=== PATIENT | female | born 1950 | race Two or more races ===

== ENCOUNTER 2023-07-21 23:44 | Emergency (ER) | payer OTHER, MEDICAID ==
[~2023-07-21] VITALS: Ht 165.1 cm; Wt 59.0 kg
[2023-07-22] VITALS: PULSE 86; RESP 16; TEMP 98.3; O2SAT 96
[2023-07-22] MEDS: KETOROLAC TROMETH 30 MG/ML 1ML VIAL IV ONE (02:22)
[2023-07-22 03:23] VITALS: BP 99/66; PULSE 92; RESP 16; O2SAT 94
== END 2023-07-22 03:29 | disposition home or self-care (01) ==
LOC: EDBD 23:44 → ER 23:44
DX: M54.32 Sciatica, left side (principal); I25.10 Atherosclerotic heart disease of native coronary artery without angina pectoris; I50.9 Heart failure, unspecified; J44.9 Chronic obstructive pulmonary disease, unspecified; Z98.890 Other specified postprocedural states; Z88.8 Allergy status to other drugs, medicaments and biological substances
CPT/HCPCS: 72100; 73502; 93005; 96374; 99284; J1885

== ENCOUNTER 2024-06-10 14:36 | Inpatient (IN) | payer OTHER, MEDICAID ==
[~2024-06-10] VITALS: Ht 157.5 cm; Wt 59.8 kg
[~2024-06-10 14:36] MED LIST: AMLO1TAB22 PO; APIX5TAB PO; ATOR10TA52 PO; DOCU-94 PO; LEVO175T4 PO; OMEP20TA PO; SACU1TAB PO
[2024-06-10] MEDS: IPRATROPIUM BROM 0.5 MG/2.5ML INH SOL NEB ONE (15:13)
[2024-06-10] MEDS: ALBUTEROL SULF 2.5 MG/0.5ML(0.5%) NEB SOLN NEB ONE (15:13)
--- NOTE | 2024-06-10 15:22 | ED.PDOC ---
SOB-HPI HPI Comments 74y F who presents to the ED via EMS for chief complaint of shortness of breath. Pt states she has been having shortness of breath for the past 1 hours and called EMS. EMS upon arrival, checked 02 sat in the 80's with respiratory distress and EMS gave pt breathing treatment and pt 02 sat philippe to 96% and pt was brought to the ED for further evaluation. Pt in the ED, in no noted distress with 02 sat of 97% on room air with all other vitals in normal range. Pt states she has extensive medical history with noted 9x prior cardiac stents placed. Pt otherwise denies any other symptoms at this time.m Chief Complaint: Shortness of Breath Time Seen by MD: 15:20 Reviewed notes: Elevator Dispatcher Notes Information Source: Patient, Emergency Med Personnel Mode of Arrival: EMS Past Medical History PAST MEDICAL HISTORY: CAD, CHF, COPD, Thyroid Surgical History: PTCA NATURALIST History: Denies all NATURALIST Hx Family History Family History: Reviewed,noncontributory to illness Social History Smoker: Non-Smoker Alcohol: Denies ETOH Use Drugs: Denies Drug Use Lives In: Home Constitutional: denies: chills, diaphoresis, fatigue, fever, malaise, sweats, weakness, others EENTM: denies: blurred vision, double vision, ear bleeding, ear discharge, ear drainage, ear pain, ear ringing, eye pain, eye redness, hearing loss, mouth pain, mouth swelling, nasal discharge, nose bleeding, nose congestion, nose pain, photophobia, tearing, throat pain, throat swelling, voice changes, others Respiratory: reports: shortness of breath; denies: cough, hemoptysis, orthopnea, SOB at rest, SOB with excertion, stridor, wheezing, others Cardiovascular: denies: chest pain, dizzy spells, diaphoresis, Dyspnea on exertion, edema, irregular heart beat, left arm pain, lightheadedness, palpitations, PND, syncope, others Gastrointestinal: denies: abdomen distended, abdominal pain, blood streaked bowels, constipated, diarrhea, dysphagia, difficulty swallowing, hematemesis, melena, nausea, poor appetite, poor fluid intake, rectal bleeding, rectal pain, vomiting, others Genitourinary: denies: abnormal vagina bleeding, burning, dyspareunia, dysuria, flank pain, frequency, hematuria, incontinence, pain, , vagina discharge, urgency, others Neurological: denies: dizziness, fainting, headache, left sided numbness, left sided weakness, numbness, paresthesia, pre-existing deficit, right sided numbness, right sided weakness, seizure, speech problems, tingling, tremors, weakness, others Musculoskeletal: denies: back pain, gout, joint pain, joint swelling, muscle pain, muscle stiffness, neck pain, others Integumetry: denies: bruises, change in color, change in hair/nails, dryness, laceration, lesions, lumps, rash, wounds, others Allergic/Immunocompromised: denies: Difficulty Healing, Frequent Infections, Hives, Itching, others Hematologic/Lymphatic: denies: anemia, blood clots, easy bleeding, easy bruising, swollen glands, others Endocrine: denies: excessive hunger, excessive sweating, excessive thirst, excessive urination, flushing, intolerance to cold, intolerance to heat, unexplained weight gain, unexplained weight loss, others Psychiatric: denies: anxiety, bipolar disorder, depression, hopeless, panic disorder, schizophrenia, sleepless, suicidal, others All Other Systems: Reviewed and Negative Physical Exam General Appearance: Moderate Distress HEENT: Normal ENT Inspection, Pharynx Normal, TMs Normal Neck: Full Range of Motion, Non-Tender, Normal, Normal Inspection Respiratory: Respiratory Distress, Other (Coarse breath sounds ) Cardiovascular: No Edema, No JVD, No Murmur, No Gallop, Normal Peripheral Pulses, Regular Rate/Rhythm Breast Exam: Deferred Gastrointestinal: No Organomegaly, Non Tender, No Pulsatile Mass, Normal Bowel Sounds, Soft Genitalia: Deferred Pelvic: Deferred Rectal: Deferred Extremities: No calf tenderness, Normal capillary refill, Normal inspection, Normal range of motion, Non-tender, No pedal edema Musculoskeletal : Apperance: Normal Neurologic: Alert, pin cleaner II-XII nml as Tested, No Motor Deficits, Normal Affect, Normal Mood, No Sensory Deficits Cerebellar Function: NOT DONE Reflexes: NOT DONE Skin: Dry, Normal Color, Warm Peripheral Pulses: 3+ Radial (R), 3+ Radial (L) Lymphatic: No Adenopathy Was a procedure done? Was a procedure done?: No Differential Dx Differential Diagnosis: Anxiety, Asthma, Bronchitis, CHF, COPD, Pneumonia, Pulmonary Embolism, Respiratory Distress X-Ray, Labs, Meds, VS Vital Signs Date Time Temp Pulse Resp B/P (MAP) Pulse Ox O2 Delivery O2 Flow Rate FiO2 06/10/24 21:12 107 18 115/81 96 0.0 21 06/10/24 15:50 98.8 101 18 141/93 (109) 96 06/10/24 15:40 98.7 115 18 115/81 (92) 94 98.7 06/10/24 15:34 Room Air* 0 21 06/10/24 15:13 20 97 Room Air* 0 21 06/10/24 14:59 95 Lab Test 06/10/24 20:54 06/10/24 15:24 Range/Units Troponin I High Sensitivity Pending 51 *H </=34 ng/L White Blood Count 5.3 4.4-10.8 10^3/uL Red Blood Count 4.95 4.0-5.20 10^6/uL Hemoglobin 15.0 12.2-16.2 g/dL Hematocrit 44.8 36.0-46.0 % Mean Corpuscular Volume 90.6 80.0-100.0 fL Mean Corpuscular Hemoglobin 30.2 28.0-32.0 pg Mean Corpuscular Hemoglobin Concent 33.4 32.0-36.0 g/dL Red Cell Distribution Width 14.3 11.8-14.3 % Platelet Count 214 140-450 10^3/uL Mean Platelet Volume 8.9 6.9-10.8 fL Neutrophils (%) (Auto) 50.3 37.0-80.0 % Lymphocytes (%) (Auto) 39.6 10.0-50.0 % Monocytes (%) (Auto) 8.1 0.0-12.0 % Eosinophils (%) (Auto) 1.7 0.0-7.0 % Basophils (%) (Auto) 0.3 0.0-2.0 % Neutrophils # (Auto) 2.7 1.6-8.6 10 ^3/uL Lymphocytes # (Auto) 2.1 0.4-5.4 10 ^3/uL Monocytes # (Auto) 0.4 0-1.3 10 ^3/uL Eosinophils # (Auto) 0.1 0-0.8 10 ^3/uL Basophils # (Auto) 0 0-0.2 10 ^3/uL Nucleated Red Blood Cells 0.0 % Sodium Level 139 136-145 mmol/L Potassium Level 4.6 3.5-5.1 mmol/L Chloride Level 109 H 98-107 mmol/L Carbon Dioxide Level 22 20-31 mmol/L Anion Gap 8 5-15 Blood Urea Nitrogen 14 9-23 mg/dL Creatinine 0.78 0.550-1.02 mg/dL Glomerular Filtration Rate Calc 80 >90 mL/min BUN/Creatinine Ratio 17.9 10.0-20.0 Serum Glucose 107 H 74-106 mg/dL Calcium Level 9.4 8.7-10.4 mg/dL Thyroid Stimulating Hormone (TSH) 38.29 H 0.55-4.78 uIU/mL Current Medications Medications (Trade) Dose Ordered Sig/David Route Start Time Stop Time Status Last Admin Methylprednisolone Sodium Succinate (Solu Medrol) 125 mg ONCE ONCE IV 06/10/24 15:00 06/10/24 15:01 DC 06/10/24 15:31 Albuterol (Ventolin Medneb) 5 mg ONCE ONCE NEB 06/10/24 15:00 06/10/24 15:01 DC 06/10/24 15:13 Ipratropium [place] (Atrovent Medneb) 0.5 mg ONCE ONCE NEB 06/10/24 15:00 06/10/24 15:01 DC 06/10/24 15:13 Azithromycin 250 ml @ 125 mls/hr ONCE ONCE IV 06/10/24 20:30 06/10/24 22:29 06/10/24 21:40 Sodium Chloride 1,000 ml @ 60 mls/hr [id number] IV 06/10/24 20:30 06/10/24 21:10 CHEST RADIOGRAPH IMPRESSION: Right lower lung zone partial opacification which may represent pneumonia. 2.8 x 2.9 cm nodular density over the right mid lung zone. Eventration of the right hemidiaphragm versus right basilar opacity. CT chest is recommended for further evaluation. Hyperinflation of the lungs. Correlate for possible mild emphysematous changes. Patient alert. Complaining of shortness a breath. Paramedics stated her saturation was in the low 80s. Vitals stable. Was given steroid. Was given breathing treatment. Reviewed her previous visit. Explained to the patient. Continue cardiac monitoring. Possibly will need placement. Time of 1ST Reevaluation: 15:50 Reevaluation 1ST: Unchanged Patient Education/Counseling: Diagnosis, Treatment Family Education/Counseling: No Family Present Departure 1 Departure Time of Disposition: 16:00 Impression: Primary Impression: COPD exacerbation Additional Impression: Pneumonitis Disposition: ADMITTED INPATIENT Admit to: Med Surg Condition: Guarded Critical Care Note Critical Care Time?: Yes (45 min-critical care time only) Stability Stability form required: No Heart Score Heart Score: Heart Score Response (Comments) Value History Slightly Suspicious 0 EKG Normal 0 Age >65 2 Risk Factors 1 or 2 risk factors 1 Troponin 1-2 x's Normal limit 1 Total 4 I personally scribed for SOFIA MEJIAS MD ([email or web address]) on 06/10/24 at 15:22. Electronically submitted by Jason Tian ([email or web address]). I personally scribed for SOFIA MEJIAS MD ([email or web address] ELENA) on 06/10/24 at 21:26. Electronically submitted by Jason Tian ([email or web address]). SOFIA MEJIAS MD Jun 10, 2024 15:22
--- NOTE | 2024-06-10 15:27 | DVH ---
CHEST RADIOGRAPH Indication: sob Technique: Single frontal view of the chest was obtained Comparison: XY CHEST XRAY 1 VIEW on DOS: 09/08/23 FINDINGS: Lines and Tubes: None Lungs: Hyperinflation of the lungs with mild interstitial prominence. Opacification of the right lowe r lung zone. 2.8 x 2.9 cm nodular density of the right medial mid lung zone. Eventration of the right hemidiaphragm versus right basilar opacity. Pleura: No effusion. No pneumothorax. Cardiomediastinal contours: Mild cardiomegaly with mild atherosclerotic calcification and uncoiling o f the aorta. Bones: No acute osseous abnormality. IMPRESSION: Right lower lung zone partial opacification which may represent pneumonia. 2.8 x 2.9 cm nodular density over the right mid lung zone. Eventration of the right hemidiaphragm ve rsus right basilar opacity. CT chest is recommended for further evaluation. Hyperinflation of the lungs. Correlate for possible mild emphysematous changes.
[2024-06-10] MEDS: methylPREDNISolone SOD SUCC 125 MG/2 ML VL IV ONE (15:31)
[2024-06-10 16:01] LABS: Potassium 4.6 mmol/L (3.5-5.1); Sodium 139 mmol/L (136-145)
[2024-06-10 16:02] LABS: Anion Gap 8 (5-15); Calcium 9.4 mg/dL (8.7-10.4); Carbon Dioxide 22 mmol/L (20-31)
[2024-06-10 16:04] LABS: Basophils # (auto) 0 10 ^3/uL (0-0.2); Basophils % (auto) 0.3 % (0.0-2.0); Eosinophils # (auto) 0.1 10 ^3/uL (0-0.8); Eosinophils % (auto) 1.7 % (0.0-7.0); Hematocrit 44.8 % (36.0-46.0); Lymphocytes # (auto) 2.1 10 ^3/uL (0.4-5.4); Lymphocytes % (auto) 39.6 % (10.0-50.0); Mean Corpuscular Hemoglobin 30.2 pg (28.0-32.0); Mean Corpuscular Hgb Conc. 33.4 g/dL (32.0-36.0); Mean Corpuscular Volume 90.6 fL (80.0-100.0); Monocytes # (auto) 0.4 10 ^3/uL (0-1.3); Monocytes % (auto) 8.1 % (0.0-12.0); Neutrophils # (auto) 2.7 10 ^3/uL (1.6-8.6); Neutrophils % (auto) 50.3 % (37.0-80.0); Platelet Count (auto) 214 10^3/uL (140-450); Red Blood Cells 4.95 10^6/uL (4.0-5.20); Red Cell Distribution Width 14.3 % (11.8-14.3); White Blood Cell 5.3 10^3/uL (4.4-10.8)
[2024-06-10 16:05] LABS: Chloride 109 mmol/L (98-107)
[2024-06-10 16:07] LABS: BUN/Creatinine Ratio 17.9 (10.0-20.0); Blood Urea Nitrogen 14 mg/dL (9-23)
[2024-06-10 16:17] LABS: Glucose 107 mg/dL (74-106)
[2024-06-10] MEDS ORDERED: ONDANSETRON HCL 4 MG/2 ML VIAL IV PRN (20:30)
[2024-06-10] MEDS ORDERED: DOCUSATE SOD 100 MG CAP PO PRN (20:30)
--- NOTE | 2024-06-10 20:50 | ECG ---
[facility] Test Date: 2024-06-10 Test Time: 14:59:22 Pat Name: JANINE BROTHERS Department: er Room: 0212T Gender: F Emergency Medicine Physician: fernanda : 1950 Requested By: SOFIA MEJIAS Order Number: [id number] Reading MD: Joshua Trujillo Measurements Intervals [place] Rate: 95 P: 0 CO: 0 QRS: 59 QRSD: 88 T: 81 QT: 373 QTc: 469 Interpretive Statements Atrial fibrillation LVH with secondary repolarization abnormality Electronically Signed On 06-18-2024 14:43:55 PST by Joshua Trujillo Please click the below link to view image of tracing.
[2024-06-10] MEDS: SODIUM CHLORIDE 0.9% 1,000 ML IV SCH (21:10)
[2024-06-10 21:12] VITALS: BP 115/81; PULSE 107; RESP 18; O2SAT 96
[2024-06-10] MEDS ORDERED: MORPHINE SULFATE INJ 2 MG/ml SYRG IV PRN (21:15)
[2024-06-10] MEDS ORDERED: NITROGLYCERIN 0.4 MG SL TAB SL PRN (21:15)
--- NOTE | 2024-06-10 21:17 | DVHHP2 ---
History of Present Illness Reason for Visit: Pneumonia, unspecified organism History of Present Illness The patient is a 74-year-old female with past medical history of CHF, COPD, HTN, HLD, Coronary artery disease, and thyroid disease who presented to [facility] ED with complaint of shortness of breaths. Patient reports symptoms progressively get worse with hypoxia, O2 saturation in the 80s when EMS arrived, getting worse that prompted this visit. Patient was seen and evaluated in the ED, laboratory data shows WBC 5.3, platelets 214, sodium 139, potassium 4.6, BUN 14, creatinine 0.78, GFR 50, glucose 107, troponin 51. Chest x-ray revealing right lower lung zone partial opacification which may represent pneumonia, 2.8 x 2.9 cm nodules density over the right mid lung zone hyperinflation of the lungs correlate for possible mild emphysematous changes. Patient was given breathing treatment, IV Solu-Medrol 125 mg x1, please see medication orders section in the computer. On my assessment, patient denied chest pain, no headache, no dizziness, currently on oxygen, no nausea, no vomiting, no fever, no chills. Patient was admitted for further evaluation and medical management. Past Medical History CAD, CHF, COPD, Thyroid, HTN, HLD Past Surgical History PTCA Family History Reviewed, noncontributory to the management of this case. Past Social History The patient lives at home, denies smoking, alcohol or illicit drugs abuse. Review of Systems Constitutional: Yes: Weakness; No: Fever, Chills, Sweats, Malaise, Other Eyes: No: Pain, Vision change, Conjunctivae inflammation, Eyelid inflammation, Other, Redness ENT: No: Ear pain, Ear discharge, Nose pain, Nose discharge, Nose congestion, Mouth pain, Mouth swelling, Throat pain, Throat swelling, Other Respiratory: Shortness of breath, SOB with excertion, Other (SOB at rest); No: Cough, Dry, Wheezing, Hemoptysis, Pleuritic Pain, Sputum, Wheezing Cardiovascular: No: Chest Pain, Palpitations, Orthopnea, Paroxysmal Noc. Dyspnea, Edema, Lt Headedness, Other Gastrointestinal: No: Nausea, Vomiting, Abdominal Pain, Diarrhea, Constipation, Melena, Hematochezia, Other Genitourinary: No Dysuria, No Frequency, No Incontinence, No Hematuria, No Retention, No Other Musculoskeletal: No: other, neck pain, shoulder pain, arm pain, back pain, hand pain, leg pain, foot pain Skin: No: Rash, Lesions, Jaundice, Bruising, Other Neurological: No: Weakness, Numbness, Incoordination, Change in speech, Confusion, Seizures, Other Allergies: Coded Allergies: Codeine (Verified Allergy, Unknown, 07/22/23) Levofloxacin (Verified Allergy, Unknown, 09/07/23) Medications Current Medications Medications Dose Ordered Sig/David Route Start Time Stop Time Status Last Admin Dose Admin Methylprednisolone Sodium Succinate 40 mg Q8HR IV 06/10/24 22:00 Famotidine 20 mg Q12HR IV 06/10/24 22:00 Levalbuterol HCl 0.625 mg Q6HR NEB 06/11/24 00:00 Ipratropium [place] 0.5 mg Q4HPRN PRN NEB 06/10/24 20:30 Azithromycin 250 ml @ 125 mls/hr DAILY IV 06/11/24 10:00 Amlodipine Besylate 5 mg DAILY PO 06/11/24 10:00 Atorvastatin Calcium 10 mg HS PO 06/10/24 22:00 Apixaban 5 mg BID PO 06/10/24 22:00 Sodium Chloride 1,000 ml @ 60 mls/hr [id number] IV 06/10/24 20:30 06/10/24 21:10 60 MLS/HR Ondansetron HCl 4 mg Q4HP PRN IV 06/10/24 20:30 Docusate Sodium 100 mg BIDPRN PRN PO 06/10/24 20:30 Acetaminophen 650 mg Q6HP PRN PO 06/10/24 20:30 Levothyroxine Sodium 150 mcg QAM@0600 PO 06/11/24 06:00 Exam Vital Signs Vital Signs Date Time Temp Pulse Resp B/P (MAP) Pulse Ox O2 Delivery O2 Flow Rate FiO2 06/10/24 21:12 107 18 115/81 96 0.0 21 06/10/24 15:50 98.8 06/10/24 15:34 Room Air* General Appearance: Alert, Oriented X3, Cooperative, No acute distress HEENT: Atraumatic, PERRLA, EOMI, Mucous membr. moist/pink Respiratory: Normal air movement, Other (Diminished breath sounds) Cardiovascular: Regular rate, Normal S1, Normal S2, No murmurs Abdominal: Normal bowel sounds, Soft, No tenderness, No hepatospenomegaly, No masses Extremities: No clubbing, No cyanosis, No edema, Normal pulses, No tenderness/swelling Skin: No rashes, No breakdown, No significant lesion Neuro: Normal speech, Normal tone, Sensation intact, Cranial nerves 3-12 NL, Reflexes 2+, Other (Generalized weakness) Psych/Mental Status: Mental status NL, Mood NL Labs/Xrays Labs Test 06/10/24 20:54 06/10/24 15:24 Range/Units White Blood Count 5.3 4.4-10.8 10^3/uL Red Blood Count 4.95 4.0-5.20 10^6/uL Hemoglobin 15.0 12.2-16.2 g/dL Hematocrit 44.8 36.0-46.0 % Mean Corpuscular Volume 90.6 80.0-100.0 fL Mean Corpuscular Hemoglobin 30.2 28.0-32.0 pg Mean Corpuscular Hemoglobin Concent 33.4 32.0-36.0 g/dL Red Cell Distribution Width 14.3 11.8-14.3 % Platelet Count 214 140-450 10^3/uL Mean Platelet Volume 8.9 6.9-10.8 fL Neutrophils (%) (Auto) 50.3 37.0-80.0 % Lymphocytes (%) (Auto) 39.6 10.0-50.0 % Monocytes (%) (Auto) 8.1 0.0-12.0 % Eosinophils (%) (Auto) 1.7 0.0-7.0 % Basophils (%) (Auto) 0.3 0.0-2.0 % Neutrophils # (Auto) 2.7 1.6-8.6 10 ^3/uL Lymphocytes # (Auto) 2.1 0.4-5.4 10 ^3/uL Monocytes # (Auto) 0.4 0-1.3 10 ^3/uL Eosinophils # (Auto) 0.1 0-0.8 10 ^3/uL Basophils # (Auto) 0 0-0.2 10 ^3/uL Nucleated Red Blood Cells 0.0 % Sodium Level 139 136-145 mmol/L Potassium Level 4.6 3.5-5.1 mmol/L Chloride Level 109 H 98-107 mmol/L Carbon Dioxide Level 22 20-31 mmol/L Anion Gap 8 5-15 Blood Urea Nitrogen 14 9-23 mg/dL Creatinine 0.78 0.550-1.02 mg/dL Glomerular Filtration Rate Calc 80 >90 mL/min BUN/Creatinine Ratio 17.9 10.0-20.0 Serum Glucose 107 H 74-106 mg/dL Calcium Level 9.4 8.7-10.4 mg/dL Thyroid Stimulating Hormone (TSH) 38.29 H 0.55-4.78 uIU/mL PATIENT: JANINE BROTHERS ACCT: [id number] UNIT: [id number] : 1950 LOC: ER ROOM / BED: / AGE / SEX: 74 / F ADM STATUS: REG ER SERVICE [id number] ORDERING PHYSICIAN: SOFIA MEJIAS MD PROCEDURE(s): CXRP - CHEST PORTABLE REASON: sob ORDER NUMBER(s): [id number], ACCESSION NUMBER(s): [id number] CHEST RADIOGRAPH Indication: sob Technique: Single frontal view of the chest was obtained Comparison: XY CHEST XRAY 1 VIEW on DOS: 09/08/23 FINDINGS: Lines and Tubes: None Lungs: Hyperinflation of the lungs with mild interstitial prominence. Opacification of the right lower lung zone. 2.8 x 2.9 cm nodular density of the right medial mid lung zone. Eventration of the right hemidiaphragm versus right basilar opacity. Pleura: No effusion. No pneumothorax. Cardiomediastinal contours: Mild cardiomegaly with mild atherosclerotic calcification and uncoiling of the aorta. Bones: No acute osseous abnormality. IMPRESSION: Right lower lung zone partial opacification which may represent pneumonia. 2.8 x 2.9 cm nodular density over the right mid lung zone. Eventration of the right hemidiaphragm versus right basilar opacity. CT chest is recommended for further evaluation. Hyperinflation of the lungs. Correlate for possible mild emphysematous changes. Assessment/Plan Assessment/Plan COPD with acute exacerbation Generalized weakness Pneumonia, unspecified organism Plan 1. Admit to telemetry unit 2. Breathing treatment 3. Pain control management 4. IV antibiotic management 5. Management of fluids and electrolytes 6. Consultation for pulmonology 7. Diagnostic test chest x-ray 8. DVT prophylaxis-on Eliquis 9. Repeat labs CBC, CMP in a.m. 10. Home medication reviewed and reconciled 11. Continue with current medical management 12. Treatment plan discussed with patient and RN. Patient verbalized understanding. Plan discussed with: Patient, Other (RN) My Orders Orders - EZRA COATS DNP Procedure Category Date Status Time Methylprednisolone PHA 06/10/24 In Process Sod Succ (Solu Medrol 22:00 Famotidine Injection PHA 06/10/24 In Process (Pepcid Injection) 22:00 Levalbuterol Hcl PHA 06/11/24 In Process (Xopenex Medneb) 00:00 Ipratropium Medneb PHA 06/10/24 In Process (Atrovent Medneb) 20:30 Azithromycin 500mg/ PHA 06/11/24 In Process 250ml (Zithromax 50 10:00 Azithromycin 500mg/ PHA 06/10/24 In Process 250ml (Zithromax 50 20:30 Amlodipine Tablet PHA 06/11/24 In Process (Norvasc Tablet) 10:00 Atorvastatin (Lipitor) PHA 06/10/24 In Process 22:00 *Consult CONS 06/10/24 Transmitted / 20:28 Troponin-I Hs LAB 06/10/24 In Process 20:28 Troponin-I Hs LAB 06/11/24 Verified 00:30 Troponin-I Hs LAB 06/11/24 Verified 04:00 Apixaban (Eliquis) PHA 06/10/24 In Process 22:00 Allergies [place] 06/10/24 In Process 20:28 Code Status CODE 06/10/24 Transmitted 20:28 Sodium Chloride 0.9% PHA 06/10/24 In Process 20:30 Oxygen Per Hour RT 06/10/24 Transmitted 20:28 Ondansetron Hcl PHA 06/10/24 In Process (Zofran) 20:30 Docusate Sodium PHA 06/10/24 In Process Capsule (Colace 20:30 Complete Blood Count LAB 06/11/24 Verified 04:00 Comprehensive LAB 06/11/24 Verified Metabolic Panel 04:00 Cardiac DIET 06/11/24 Transmitted Diet-2gna,Lofat,Lochol Breakfast Condition: Serious [place] 06/10/24 In Process 20:28 Acetaminophen Tablet PHA 06/10/24 In Process (Tylenol Tablet) 20:30 Bedrest With Bathroom [place] 06/10/24 In Process Privileg 20:28 Sequential [place] 06/10/24 In Process Compression Device Levothyroxine Tablet PHA 06/11/24 In Process (Synthroid Tablet) 06:00 Problem List: (1) COPD with acute exacerbation (2) Generalized weakness (3) Pneumonia, unspecified organism Date of Service: Jun 10, 2024 Billing Provider: EZRA COATS DNP Common Visit Codes: 55889-SIMETPS INP/OBS CARE (HIGH) EZRA COATS DNP Jun 10, 2024 21:17
[2024-06-10] MEDS: AZITHROMYCIN 500MG/ 250ML 250 ML IV ONE (21:40)
[2024-06-10] MEDS: FAMOTIDINE (10MG/ML) 2ML VL IV SCH (22:02)
[2024-06-10] MEDS: methylPREDNISolone SOD SUCC 40 MG/ML VL IV SCH (22:02)
[2024-06-10] MEDS: APIXABAN 5 MG TAB PO SCH (22:02)
[2024-06-10] MEDS: ATORVASTATIN 20 MG TAB PO SCH (22:02)
[2024-06-11] VITALS (18 sets, daily range): BP systolic 114–149; BP diastolic 79–95; PULSE 76–118; RESP 14–19; TEMP 97.5–97.9; O2SAT 92–99
[2024-06-11] MEDS: LEVALBUTEROL HCL 1.25 MG/3 ML NEB NEB SCH (00:09)
[2024-06-11] MEDS: IPRATROPIUM BROM 0.5 MG/2.5ML INH SOL NEB PRN (00:09)
[2024-06-11] MEDS: LEVOTHYROXINE SODIUM 50 MCG TAB PO SCH (05:50)
--- NOTE | 2024-06-11 09:58 | DVH ---
CLINICAL INFORMATION: 74 years old, Female; shortness of breath. TECHNIQUE: Axial CT imaging of the chest was performed without IV contrast. Sagittal and coronal ref ormatted images were made, stored and reviewed. Evaluation is limited without IV contrast. One or mor e of the following dose reduction techniques were used: Automated exposure control. Adjustment of mA and/or kV according to patient size. CTDIvol = 9.84 mGy DLP = 362.82 mGy-cm COMPARISON: Radiograph dated 06/10/2024 FINDINGS: Aorta: Mildly ectatic ascending aorta measuring up to 3.9 cm in diameter. Moderate atherosclerotic c alcification. Cardiac: Moderate to marked cardiomegaly with markedly enlarged left atrium. Dense coronary artery ca lcification and/or stents. Mediastinum/mally: Right lower paratracheal lymph node measures up to 2.6 x 0.9 cm, likely reactive. Lungs: Scattered areas of subsegmental atelectasis. No focal consolidation. There is an ovoid nodular density in the right lower lobe abutting the posterior aspect of the descending thoracic aorta, pete uring up to 1.1 cm. This is most likely a pulmonary nodule abutting the descending thoracic aorta, or less likely a saccular aneurysm emanating from the posterior wall of the descending thoracic aorta, although unable to determine without IV contrast. No other pulmonary nodule visualized. Pulmonary arteries: No gross abnormality. Chest wall: No mass or other abnormality. Upper abdomen: Right adrenal nodule measures up to 1.1 cm demonstrates low-density, likely an adenoma . There is a small area of calcification associated with the nodule. Bones: No fracture or suspicious intraosseous lesions. IMPRESSION: 1. Moderate to marked cardiomegaly with left atrial enlargement. 2. Mildly ectatic ascending thoracic aorta. 3. Nodular density in the left lower lobe abutting the posterior aspect of the descending thoracic ao rta, most likely a pulmonary nodule, although can not completely exclude a small saccular aneurysm em anating from the posterior aspect of the aortic arch. Contrast enhanced CT could be obtained to [facility] characterize. 4. Right adrenal nodule, most likely adenoma. Small focus of calcification associated with the nodul e, may be sequela of small adrenal hemorrhage. 5. Additional findings as detailed above.
[2024-06-11] MEDS: amLODIPine BESYLATE 5 MG TAB PO SCH (10:28)
[2024-06-11] MEDS: AZITHROMYCIN 500MG/ 250ML 250 ML IV SCH (10:28)
[2024-06-11 10:50] LABS: Basophils # (auto) 0 10 ^3/uL (0-0.2); Basophils % (auto) 0.1 % (0.0-2.0); Eosinophils # (auto) 0 10 ^3/uL (0-0.8); Lymphocytes % (auto) 23.3 % (10.0-50.0); Mean Corpuscular Hemoglobin 30.4 pg (28.0-32.0); Mean Corpuscular Hgb Conc. 32.5 g/dL (32.0-36.0); Mean Corpuscular Volume 93.4 fL (80.0-100.0); Monocytes # (auto) 0.1 10 ^3/uL (0-1.3); Monocytes % (auto) 1.8 % (0.0-12.0); Neutrophils # (auto) 3.2 10 ^3/uL (1.6-8.6); Neutrophils % (auto) 74.8 % (37.0-80.0); Nucleated Red Blood Cells % 0.1 %; Platelet Count (auto) 226 10^3/uL (140-450); Red Blood Cells 4.93 10^6/uL (4.0-5.20); Red Cell Distribution Width 14.5 % (11.8-14.3); White Blood Cell 4.2 10^3/uL (4.4-10.8)
[2024-06-11] MEDS: ACETAMINOPHEN 325 MG TAB PO PRN (12:10)
[2024-06-11 12:47] LABS: Urine Bacteria None Seen /hpf (None Seen)
[2024-06-11 13:10] LABS: Urine Blood Negative /uL (Negative); Urine Clarity Clear (Clear); Urine Color Yellow (Yellow); Urine Mucus FEW (None Seen); Urine Protein, UAD 1+ (Negative); Urine Specific Gravity 1.023 (1.001-1.035); Urine Squamous Epithelial Cell FEW /hpf (<5); Urine Urobilinogen Normal (Negative); Urine WBC 2 /hpf (0 - 5)
[2024-06-11 13:33] LABS: Alanine Aminotransferase 10 U/L (7-40); Alkaline Phosphatase 63 U/L (46-116); Anion Gap 14 (5-15); Aspartate Aminotransferase 18 U/L (13-40); BUN/Creatinine Ratio 15.2 (10.0-20.0); Bilirubin, Total 0.9 mg/dL (0.2-1.0); Blood Urea Nitrogen 12 mg/dL (9-23); Potassium 4.8 mmol/L (3.5-5.1); Sodium 139 mmol/L (136-145); Total Protein 6.9 g/dL (5.7-8.2)
[2024-06-11 13:35] LABS: Carbon Dioxide 15 mmol/L (20-31); Chloride 110 mmol/L (98-107); Glucose 232 mg/dL (74-106)
[2024-06-11] MEDS: cefTRIAXone 1GM/50ML D5W 50 ML IV ONE (17:12)
--- NOTE | 2024-06-11 20:24 | DVHINCON2 ---
Date of service: Jun 11, 2024 Referring Physician Sorin Castillo NP Reason for Consultation COPD exacerbation, pneumonia History of Present Illness A 74-year-old woman with past medical history of COPD, CHF, hypertension, hyperlipidemia, coronary artery disease, and thyroid disease who presented to ED on 06/10/24 with complaint of shortness of breath. Patient reported progressively worsening symptoms with hypoxia, O2 saturation in the 80s when EMS arrived. ED workup notable for WBC 5.3, platelets 214, sodium 139, potassium 4.6, BUN 14, creatinine 0.78, GFR 50, glucose 107, troponin 51. Chest x-ray revealing right lower lung zone partial opacification which may represent pneumonia, 2.8 x 2.9 cm nodules density over the right mid lung zone; hyperinflation of the lungs, correlate for possible mild emphysematous changes. Patient was admitted for further care and pulmonary consultation is requested for evaluation and management due to these findings. Review of Systems: 14-point review of systems negative unless otherwise noted above. Past Medical History: COPD, CHF, hypertension, hyperlipidemia, coronary artery disease, and thyroid disease Past Surgical History: PTCA. Medications: Reviewed. Allergies: Codeine Levofloxacin Family History: Mom with hypertension Social History: Nonsmoker. No alcohol or illicit drug use. Family History: Hypertension G8 MOTHER Allergies: Coded Allergies: Codeine (Verified Allergy, Unknown, 07/22/23) Levofloxacin (Verified Allergy, Unknown, 09/07/23) Home Meds Reported Medications Sacubitril-Valsartan (Entresto 24-26 mg) 1 Tab Tab, 1 TAB PO, TAB 09/09/23 Levothyroxine Sodium (Levothyroxine Sodium) 175 Mcg Tab, 150 MCG PO QAM for 30 Days, MCG 09/09/23 Atorvastatin Calcium (ATORVASTATIN CALCIUM) 10 Mg Tab, 10 MG PO DAILY, TAB 09/09/23 Amlodipine Besylate (Amlodipine Besylate) 5 Mg Tab, 5 MG PO DAILY for 30 Days, MG 09/09/23 Omeprazole (Gnp Omeprazole) 20 Mg Tab, 40 MG PO DAILY, TAB 09/09/23 Apixaban Base (ELIQUIS) 5 Mg Tab, 5 MG PO BID, TAB 09/09/23 Docusate Sodium (Colace) 100 Mg Cap, 100 MG PO BID 09/09/23 Current Medications Current Medications Medications (Trade) Dose Ordered Sig/David Route PRN Reason Start Time Stop Time Status Last Admin Methylprednisolone Sodium Succinate (Solu Medrol) 40 mg Q8HR IV 06/10/24 22:00 06/11/24 13:52 Famotidine (Pepcid Injection) 20 mg Q12HR IV 06/10/24 22:00 06/11/24 10:27 Levalbuterol HCl (Xopenex Medneb) 0.625 mg Q6HR NEB 06/11/24 00:00 06/11/24 18:43 Ipratropium [place] (Atrovent Medneb) 0.5 mg Q4HPRN PRN NEB SHORTNESS OF BREATH 06/10/24 20:30 06/11/24 18:43 Azithromycin 250 ml @ 125 mls/hr DAILY IV 06/11/24 10:00 06/11/24 10:28 Amlodipine Besylate (Norvasc Tablet) 5 mg DAILY PO 06/11/24 10:00 06/11/24 10:28 Atorvastatin Calcium (Lipitor) 10 mg HS PO 06/10/24 22:00 06/10/24 22:02 Apixaban (Eliquis) 5 mg BID PO 06/10/24 22:00 06/11/24 10:28 Sodium Chloride 1,000 ml @ 60 mls/hr [id number] IV 06/10/24 20:30 06/11/24 13:53 Ondansetron HCl (Zofran) 4 mg Q4HP PRN IV NAUSEA / VOMITING 06/10/24 20:30 Docusate Sodium (Colace Capsule) 100 mg BIDPRN PRN PO FOR CONSTIPATION 06/10/24 20:30 Acetaminophen (Tylenol Tablet) 650 mg Q6HP PRN PO PAIN SCALE 1-3 OR TEMP>100.4 06/10/24 20:30 06/11/24 12:10 Levothyroxine Sodium (Synthroid Tablet) 150 mcg QAM@0600 PO 06/11/24 06:00 06/11/24 05:50 Nitroglycerin (Ntrostat Sublingual) 0.4 mg Q5MINP PRN SL FOR CHEST PAIN 06/10/24 21:15 Morphine Sulfate 2 mg Q30M PRN IV FOR CHEST PAIN 06/10/24 21:15 Ceftriaxone Sodium 50 ml @ 100 mls/hr DAILY@09 IV 06/12/24 09:00 Vital Signs Vital Signs Date Time Temp Pulse Resp B/P (MAP) Pulse Ox O2 Delivery O2 Flow Rate FiO2 06/11/24 18:51 100 18 92 06/11/24 18:43 Nasal Cannula 2.0 06/11/24 18:43 28 06/11/24 17:00 97.7 121/95 (104) 97.7 Physical Exam Gen.: Patient lying in bed in no apparent distress. On supplemental oxygen. Head: Normocephalic, atraumatic. Eyes: EOMI/PERRLA. Ears: Normal hearing. Normal anatomy. Neck/trachea: Trachea midline, supple. Nose: Normal external anatomy. Mouth: Moist mucous membranes. Chest: Decreased air entry bilaterally. No wheezing or rhonchi. Cardiovascular: Positive S1, positive S2. Regular rate and rhythm. Abdomen: Positive bowel sounds in all 4 quadrants. Soft, non-tender, non- distended. : Deferred. Rectal: Deferred. Skin: Warm, dry. Intact. Extremities: 2+ radial pulses bilaterally. No lower extremity edema. Neuro: Awake, alert, oriented x3. No gross motor or sensory deficits. Cranial nerves II through XII intact. Gait not assessed. Labs/Diagnostic Data Labs Test 06/11/24 12:46 06/11/24 09:35 06/10/24 15:24 Range/Units Urine Color Yellow Yellow Urine Clarity Clear Clear Urine pH 6.0 5.0-9.0 Urine Specific [place] 1.023 1.001-1.035 Urine Protein 1+ H Negative Urine Ketones Negative Negative Urine Blood Negative Negative /uL Urine Nitrite Negative Negative Urine Bilirubin Negative Negative Urine Urobilinogen Normal Negative mg/dL Urine Leukocyte Esterase Negative Negative /uL Urine RBC 1 0 - 4 /hpf Urine WBC 2 0 - 5 /hpf Urine Squamous Epithelial Cells Few <5 /hpf Urine Bacteria None seen None Seen /hpf Urine Mucus Few None Seen Urine Glucose Normal Normal mg/dL White Blood Count 4.2 L 4.4-10.8 10^3/uL Red Blood Count 4.93 4.0-5.20 10^6/uL Hemoglobin 15.0 12.2-16.2 g/dL Hematocrit 46.0 36.0-46.0 % Mean Corpuscular Volume 93.4 80.0-100.0 fL Mean Corpuscular Hemoglobin 30.4 28.0-32.0 pg Mean Corpuscular Hemoglobin Concent 32.5 32.0-36.0 g/dL Red Cell Distribution Width 14.5 H 11.8-14.3 % Platelet Count 226 140-450 10^3/uL Mean Platelet Volume 9.1 6.9-10.8 fL Neutrophils (%) (Auto) 74.8 37.0-80.0 % Lymphocytes (%) (Auto) 23.3 10.0-50.0 % Monocytes (%) (Auto) 1.8 0.0-12.0 % Eosinophils (%) (Auto) 0.0 0.0-7.0 % Basophils (%) (Auto) 0.1 0.0-2.0 % Neutrophils # (Auto) 3.2 1.6-8.6 10 ^3/uL Lymphocytes # (Auto) 1.0 0.4-5.4 10 ^3/uL Monocytes # (Auto) 0.1 0-1.3 10 ^3/uL Eosinophils # (Auto) 0 0-0.8 10 ^3/uL Basophils # (Auto) 0 0-0.2 10 ^3/uL Nucleated Red Blood Cells 0.1 % Sodium Level 139 136-145 mmol/L Potassium Level 4.8 3.5-5.1 mmol/L Chloride Level 110 H 98-107 mmol/L Carbon Dioxide Level 15 L 20-31 mmol/L Anion Gap 14 5-15 Blood Urea Nitrogen 12 9-23 mg/dL Creatinine 0.79 0.550-1.02 mg/dL Glomerular Filtration Rate Calc 78 >90 mL/min BUN/Creatinine Ratio 15.2 10.0-20.0 Serum Glucose 232 H 74-106 mg/dL Calcium Level 10.0 8.7-10.4 mg/dL Total Bilirubin 0.9 0.2-1.0 mg/dL Aspartate Amino Transferase (AST) 18 13-40 U/L Alanine Aminotransferase (ALT) 10 7-40 U/L Alkaline Phosphatase 63 46-116 U/L Troponin I High Sensitivity 39 *H </=34 ng/L Total Protein 6.9 5.7-8.2 g/dL Albumin 4.0 3.2-4.8 g/dL Thyroid Stimulating Hormone (TSH) 38.29 H 0.55-4.78 uIU/mL Assessment Impression: COPD exacerbation Pneumonia Generalized weakness Atelectasis Plan: Supplemental oxygen 2 LPM NC Titrate to keep O2 sats above 92%. Taper O2 as tolerated. Chest CT reviewed, demonstrates moderate to marked cardiomegaly with left atrial enlargement. Mildly ectatic ascending thoracic aorta. Nodular density in the left lower lobe abutting the posterior aspect of the descending thoracic aorta, most likely a pulmonary nodule, although can not completely exclude a small saccular aneurysm emanating from the posterior aspect of the aortic arch. Right adrenal nodule, most likely adenoma. Small focus of calcification associated with the nodule, may be sequela of small adrenal hemorrhage. Continue bronchodilators. Continue antibiotics IV steroids Incentive spirometry Monitor renal function. Monitor electrolytes. Supplement as necessary. Monitor ins and outs. GI prophylaxis - Pepcid DVT prophylaxis. Prognosis: Poor given patient's multiple co-morbidities. Rest of plan per hospitalist and other consultants. Thank you, EMILY Castillo, for allowing me to participate in this patient's care. Further recommendations will depend on the patient's clinical course. Please do not hesitate to contact me if you have any questions or concerns. This medical document was created using an electronic medical record system with [employer] dictation system. Although these documentations are being carefully reviewed, there may still be some phonetic and typographical changes. The errors are purely typographical, due to imperfection on the software progr am, and do not reflect any compromise in the patient's medical care. Plan discussed with: Patient, Other (KEITH Sainz/EMILY Castillo/) JUAN CARLOS HENDERSON MD Jun 11, 2024 20:24
--- NOTE | 2024-06-11 21:48 | DVHPNRES ---
Progress Note Date Seen: Jun 11, 2024 Resident Creating Document: CUCO MORRISON RESIDENT Medical Necessity Reason Pt with a Central, PICC or Fol: No Subjective Review of Systems pt seen and examined at bedside currently on 2L O2 through nasal canula Objective vital signs Vital Sign Date Time Temp Pulse Resp B/P (MAP) Pulse Ox O2 Delivery O2 Flow Rate FiO2 06/11/24 21:00 97.9 99 19 114/79 (91) 97 97.9 06/11/24 18:43 Nasal Cannula 2.0 06/11/24 18:43 28 Total Intake and Output 06/10/24 06/10/24 06/11/24 15:00 23:00 07:00 Intake Total 390 ml Balance 390 ml medications Current Medications Medications Dose Ordered Sig/David Route Start Time Stop Time Status Last Admin Dose Admin Methylprednisolone Sodium Succinate 40 mg Q8HR IV 06/10/24 22:00 06/11/24 13:52 40 MG Famotidine 20 mg Q12HR IV 06/10/24 22:00 06/11/24 10:27 20 MG Levalbuterol HCl 0.625 mg Q6HR NEB 06/11/24 00:00 06/11/24 18:43 0.625 MG Ipratropium [place] 0.5 mg Q4HPRN PRN NEB 06/10/24 20:30 06/11/24 18:43 0.5 MG Azithromycin 250 ml @ 125 mls/hr DAILY IV 06/11/24 10:00 06/11/24 10:28 125 MLS/HR Amlodipine Besylate 5 mg DAILY PO 06/11/24 10:00 06/11/24 10:28 5 MG Atorvastatin Calcium 10 mg HS PO 06/10/24 22:00 06/10/24 22:02 10 MG Apixaban 5 mg BID PO 06/10/24 22:00 06/11/24 10:28 5 MG Sodium Chloride 1,000 ml @ 60 mls/hr [id number] IV 06/10/24 20:30 06/11/24 13:53 60 MLS/HR Ondansetron HCl 4 mg Q4HP PRN IV 06/10/24 20:30 Docusate Sodium 100 mg BIDPRN PRN PO 06/10/24 20:30 Acetaminophen 650 mg Q6HP PRN PO 06/10/24 20:30 06/11/24 12:10 650 MG Levothyroxine Sodium 150 mcg QAM@0600 PO 06/11/24 06:00 06/11/24 05:50 150 MCG Nitroglycerin 0.4 mg Q5MINP PRN SL 06/10/24 21:15 Morphine Sulfate 2 mg Q30M PRN IV 06/10/24 21:15 Ceftriaxone Sodium 50 ml @ 100 mls/hr DAILY@09 IV 06/12/24 09:00 Examination Examination General Appearance: Alert, Oriented X3, Cooperative, No acute distress, on 2 L of oxygen HEENT: EOMI Respiratory: Clear to auscultation, Normal air movement, mild wheezing Cardiovascular: Regular rate, Normal S1, Normal S2 Abdominal: Normal bowel sounds Extremities: No cyanosis, No edema, Normal pulses, No tenderness/swelling Skin: No rashes, No breakdown Neuro: Normal speech and tone laboratory and microbiology Laboratory Tests 06/11/24 09:35 Test 06/11/24 09:35 Range/Units Serum Glucose 232 H 74-106 mg/dL Labs and/or images reviewed: Labs reviewed by me, Image(s) reviewed by me Problem List/Assessment/Plan Problem List/Assessment/Plan Assessment/plan # acute hypoxic respiratory failure likely due to COPD exacerbation/obstructive pneumonia/lung loss -currently on 2 L of oxygen through nasal cannula Nebulization with ipratropium and levalbuterol # COPD with acute exacerbation -switch to oral prednisone # ?obstructive Pneumonia, unspecified organism -IV ceftriaxone plus IV azithromycin # Mildly ectatic ascending thoracic aorta -seen on CT chest # Nodular density in the left lower lobe, concern for malignancy -CT chest shows Nodular density in the left lower lobe abutting the posterior aspect of the descending thoracic aorta, most likely a pulmonary nodule, although can not completely exclude a small saccular aneurysm emanating from the posterior aspect of the aortic arch. Contrast enhanced CT could be obtained to further characterize. -history of previous smoking -pulmonology consulted # Right adrenal nodule, most likely adenoma. CT shows Right adrenal nodule, most likely adenoma. Small focus of calcification associated with the nodule, may be sequela of small adrenal hemorrhage. #History of A-fib -eliquis continued #CAD s/p PTCA -currently on eliquis will consider aspirin on discharge, continue statins #CHF, chronic -monitor -Moderate to marked cardiomegaly with left atrial enlargement seen on CT -we will resume Entresto # hypertension -we will resume home medication #Hyperlipidemia -statins #Hypothyroidism -resume home meds #DVT prophylaxis Patient is on Eliquis Code status discussed with the patient for greater than 21 minutes, full code Case discussed with Plan discussed with: Patient, Other My Orders My Orders Orders - CUCO MORRISON Procedure Category Date Status Time Chest Without Contrast CT 06/11/24 Resulted 09:10 *Consult CONS 06/11/24 Transmitted / 16:00 Ceftriaxone 1gm/50ml PHA 06/12/24 In Process D5w (Rocephin) 09:00 Date of Service: Jun 11, 2024 Billing Provider: ZAYNAB JUAREZ MD Common Visit Codes: [id number] INP/OBS CARE(HIGH) CUCO MORRISON RESIDENT Jun 11, 2024 21:48 ZAYNAB JUAREZ MD Jun 13, 2024 16:15
[2024-06-12] VITALS (16 sets, daily range): BP systolic 115–143; BP diastolic 64–95; PULSE 86–120; RESP 17–20; TEMP 96.2–97.9; O2SAT 94–100
[2024-06-12] MEDS: LEVOTHYROXINE SODIUM 50 MCG TAB PO SCH (06:00)
[2024-06-12 07:13] LABS: Basophils # (auto) 0 10 ^3/uL (0-0.2); Eosinophils # (auto) 0 10 ^3/uL (0-0.8); Hematocrit 40.5 % (36.0-46.0); Hemoglobin 13.6 g/dL (12.2-16.2); Lymphocytes # (auto) 0.8 10 ^3/uL (0.4-5.4); Lymphocytes % (auto) 6.9 % (10.0-50.0); Mean Corpuscular Hemoglobin 30.2 pg (28.0-32.0); Mean Corpuscular Hgb Conc. 33.5 g/dL (32.0-36.0); Mean Corpuscular Volume 90.1 fL (80.0-100.0); Monocytes # (auto) 0.3 10 ^3/uL (0-1.3); Monocytes % (auto) 2.3 % (0.0-12.0); Neutrophils # (auto) 10.3 10 ^3/uL (1.6-8.6); Neutrophils % (auto) 90.8 % (37.0-80.0); Platelet Count (auto) 245 10^3/uL (140-450); Red Cell Distribution Width 14.1 % (11.8-14.3); White Blood Cell 11.4 10^3/uL (4.4-10.8)
[2024-06-12 07:21] LABS: Anion Gap 10 (5-15); Carbon Dioxide 22 mmol/L (20-31); Potassium 4.4 mmol/L (3.5-5.1); Sodium 139 mmol/L (136-145)
[2024-06-12 07:22] LABS: Calcium 9.5 mg/dL (8.7-10.4)
[2024-06-12 07:27] LABS: BUN/Creatinine Ratio 17.6 (10.0-20.0); Blood Urea Nitrogen 13 mg/dL (9-23); Chloride 107 mmol/L (98-107); Glucose 133 mg/dL (74-106)
[2024-06-12 07:28] LABS: Magnesium 1.7 mg/dL (1.6-2.6)
[2024-06-12 11:46] LABS: Free T3 1.01 pg/mL (2.3-4.2)
[2024-06-12 11:47] LABS: Free T4 (Free Thyroxine) 1.01 ng/dL (0.89-1.76)
[2024-06-12] MEDS: cefTRIAXone 1GM/50ML D5W 50 ML IV SCH (12:39)
[2024-06-12] MEDS: predniSONE 20 MG TAB PO SCH (12:40)
--- NOTE | 2024-06-12 15:25 | DVHINCON2 ---
Date Seen: Jun 12, 2024 Referring Physician MD Marv Reason for Consultation Afib History of Present Illness This is a 74-year-old female patient who presents to the emergency room with chief complaint of shortness of breath. The patient reports worsening shortness of breath for one day and decided to come to the emergency room for further evaluation. Cardiology has now been consulted by primary care team for atrial fibrillation. Initial twelve lead electrocardiogram reveals atrial fibrillation with left ventricular hypertrophy. Initial troponin level of 51ng/L with down trend thereafter.Significant past medical history includes coronary artery disease with multiple PTCAs X 9 BEAR (on Aspirin), congestive heart failure, persistent atrial fibrillation (on Eliquis), hypertension, history of left lower extremity DVT, COPD, thyroid disease, GERD, tobacco use, and polysubstance abuse. The patient reports that she follows up with a education program associate in the outpatient setting, but at this time can not remember their name. Past Medical History Past medical history reviewed. No other significant than mentioned above. Past Surgical History Past surgical history reviewed. Family History: Hypertension G8 MOTHER Family History Family history reviewed. Social History Denies the use of tobacco, alcohol or illicit drugs. * previous admission positive for methamphetamines. Patient adamantly denies any drug use Allergies: Coded Allergies: Codeine (Verified Allergy, Unknown, 07/22/23) Levofloxacin (Verified Allergy, Unknown, 09/07/23) Home Meds Reported Medications Sacubitril-Valsartan (Entresto 24-26 mg) 1 Tab Tab, 1 TAB PO, TAB 09/09/23 Levothyroxine Sodium (Levothyroxine Sodium) 175 Mcg Tab, 150 MCG PO QAM for 30 Days, MCG 09/09/23 Atorvastatin Calcium (ATORVASTATIN CALCIUM) 10 Mg Tab, 10 MG PO DAILY, TAB 09/09/23 Amlodipine Besylate (Amlodipine Besylate) 5 Mg Tab, 5 MG PO DAILY for 30 Days, MG 09/09/23 Omeprazole (Gnp Omeprazole) 20 Mg Tab, 40 MG PO DAILY, TAB 09/09/23 Apixaban Base (ELIQUIS) 5 Mg Tab, 5 MG PO BID, TAB 09/09/23 Docusate Sodium (Colace) 100 Mg Cap, 100 MG PO BID 09/09/23 Home Meds Home medications reviewed. Current Medications Current Medications Medications (Trade) Dose Ordered Sig/David Route PRN Reason Start Time Stop Time Status Last Admin Ceftriaxone Sodium 50 ml @ 100 mls/hr DAILY@09 IV 06/12/24 09:00 06/12/24 12:39 Levothyroxine Sodium (Synthroid Tablet) 150 mcg QAM@0600 PO 06/12/24 06:00 Prednisone 40 mg DAILY PO 06/12/24 10:00 06/12/24 12:40 Azithromycin (Zithromax Tablet) 250 mg DAILY PO 06/12/24 14:47 Magnesium Sulfate/ Dextrose 100 ml @ 100 mls/hr Q1HR IV 06/12/24 15:00 06/12/24 16:59 Review of Systems Constitutional: No symptom reported Ears, Nose, & Throat: No symptom reported Eyes: No symptom reported Neurological: No symptoms reported Pulmonary/Respiratory: Shortness of breath Cardiovascular: No symptom reported Gastrointestinal: No symptom reported Genitourinary: No symptom reported Musculoskeletal: No symptom reported Skin: No symptom reported Psychiatric: No symptom reported Endocrine: No symptom reported Hematologic/Lymphatic: No symptom reported Vital Signs Vital Signs Date Time Temp Pulse Resp B/P (MAP) Pulse Ox O2 Delivery O2 Flow Rate FiO2 06/12/24 13:23 105 18 100 06/12/24 13:18 Room Air 0.0 06/12/24 13:18 21 06/12/24 12:45 97.9 116/91 (99) 97.9 Physical Exam General Appearance: Cooperative. Well-developed. Well-nourished. No acute distress. Pulmonary/Respiratory: Clear, bilateral breaths sounds. Cardiovascular/Chest: Irregular rate and rhythm. Peripheral Pulses: 2+ Radial (R). 2+ Radial (L). 2+ Pedal (R). 2+ Pedal (L) Abdominal Exam: Normal bowel sounds. Ankle Exam: Trace ankle edema Lower extremities: Negative lower extremity edema Neuro/Mental Status: A/OX4, coherent. Thoughts/Psych: Normal thought pattern. Appropriate mood and affect. Good judgment and insight. Appearance: No acute distress. Skin Exam: Normal inspection. Normal color. Warm and dry. Labs/Diagnostic Data Labs Test 06/12/24 14:43 06/12/24 05:23 06/11/24 12:46 06/11/24 09:35 Range/Units Blood Gas Specimen Type Arterial Blood Gas Sample Site Right radial Blood Gas Patient Temperature 37.0 Arterial Blood Date Drawn [id number] Arterial Blood pH 7.454 H 7.350-7.450 Arterial Blood Partial Pressure CO2 32.1 32.0-45.0 mmHg Arterial Blood Partial Pressure O2 75.9 L 83.0-108.0 mmHg Arterial Blood HCO3 22.0 21.0-28.0 mmol/L Arterial Blood Oxygen Saturation 94.7 94.0-98.0 % Arterial Blood Base Excess -1.0 -2.0-3.0 mmol/L Arterial Blood Oxyhemoglobin 93.7 L 94.0-98.0 % Arterial Blood Carboxyhemoglobin 0.8 0.5-1.5 % Arterial Blood Methemoglobin 0.3 0.0-1.5 % [place] Test Yes Blood Gas Total Hemoglobin 14.50 12.0-16.0 g/dL Blood Gas Modality Room air FiO2 % 21.0 White Blood Count 11.4 #H 4.4-10.8 10^3/uL Red Blood Count 4.50 4.0-5.20 10^6/uL Hemoglobin 13.6 12.2-16.2 g/dL Hematocrit 40.5 # 36.0-46.0 % Mean Corpuscular Volume 90.1 80.0-100.0 fL Mean Corpuscular Hemoglobin 30.2 28.0-32.0 pg Mean Corpuscular Hemoglobin Concent 33.5 32.0-36.0 g/dL Red Cell Distribution Width 14.1 11.8-14.3 % Platelet Count 245 140-450 10^3/uL Mean Platelet Volume 9.0 6.9-10.8 fL Neutrophils (%) (Auto) 90.8 H 37.0-80.0 % Lymphocytes (%) (Auto) 6.9 L 10.0-50.0 % Monocytes (%) (Auto) 2.3 0.0-12.0 % Eosinophils (%) (Auto) 0.0 0.0-7.0 % Basophils (%) (Auto) 0.0 0.0-2.0 % Neutrophils # (Auto) 10.3 H 1.6-8.6 10 ^3/uL Lymphocytes # (Auto) 0.8 0.4-5.4 10 ^3/uL Monocytes # (Auto) 0.3 0-1.3 10 ^3/uL Eosinophils # (Auto) 0 0-0.8 10 ^3/uL Basophils # (Auto) 0 0-0.2 10 ^3/uL Nucleated Red Blood Cells 0.0 % Sodium Level 139 136-145 mmol/L Potassium Level 4.4 3.5-5.1 mmol/L Chloride Level 107 98-107 mmol/L Carbon Dioxide Level 22 20-31 mmol/L Anion Gap 10 5-15 Blood Urea Nitrogen 13 9-23 mg/dL Creatinine 0.74 0.550-1.02 mg/dL Glomerular Filtration Rate Calc 85 >90 mL/min BUN/Creatinine Ratio 17.6 10.0-20.0 Serum Glucose 133 H 74-106 mg/dL Hemoglobin A1c 6.2 H <5.7 % A1C Calcium Level 9.5 8.7-10.4 mg/dL Magnesium Level 1.7 1.6-2.6 mg/dL Free Thyroxine (T4) Calculated 1.01 0.89-1.76 ng/dL Free Triiodothyronine (T3) pg/mL 1.01 L 2.3-4.2 pg/mL Urine Color Yellow Yellow Urine Clarity Clear Clear Urine pH 6.0 5.0-9.0 Urine Specific [place] 1.023 1.001-1.035 Urine Protein 1+ H Negative Urine Ketones Negative Negative Urine Blood Negative Negative /uL Urine Nitrite Negative Negative Urine Bilirubin Negative Negative Urine Urobilinogen Normal Negative mg/dL Urine Leukocyte Esterase Negative Negative /uL Urine RBC 1 0 - 4 /hpf Urine WBC 2 0 - 5 /hpf Urine Squamous Epithelial Cells Few <5 /hpf Urine Bacteria None seen None Seen /hpf Urine Mucus Few None Seen Urine Glucose Normal Normal mg/dL Total Bilirubin 0.9 0.2-1.0 mg/dL Aspartate Amino Transferase (AST) 18 13-40 U/L Alanine Aminotransferase (ALT) 10 7-40 U/L Alkaline Phosphatase 63 46-116 U/L Troponin I High Sensitivity 39 *H </=34 ng/L Total Protein 6.9 5.7-8.2 g/dL Albumin 4.0 3.2-4.8 g/dL Test 06/10/24 15:24 Range/Units Thyroid Stimulating Hormone (TSH) 38.29 H 0.55-4.78 uIU/mL Assessment Persistent atrial fibrillation, Stage 3B (on Eliquis) NSTEMI type II Coronary artery disease with multiple PTCA's X 9 BEAR (on Aspirin) 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 Nobles): * Echocardiogram to evaluate cardiac function * Previous echocardiogram from 09/08/23 reveals EF 45%, with torrential mitral valve regurgitation * [id number] VASc score: 5 points HAS-BLED score: 2 points * Beta-tamela for rate control (restart Coreg) * NOAC therapy, Eliquis * Single antiplatelet therapy and Lipid-lowering agent * Monitor and replete electrolytes as needed, keep potassium greater than 4 and magnesium greater than 2 * Antibiotics per primary care team Patient seen and examined at bedside with . Continue with medical management. Critical care time spent: 41 minutes This medical document was created using an electronic medical record system with voice recognition software and computerized dictation system. Although this document has been carefully reviewed, there might still be some phonetic and typographical errors. Occasional wrong-word or ``sound-alike substitutions may have occurred due to the inherent limitations of voice recognition software. These areas are purely typographical due to imperfections of the software progr ams and do not reflect any compromise in the patient's medical care. Please read the chart carefully and recognize, using context, where these substitutions have occurred. Plan discussed with: Patient NYHA Physical activity limitations: Class3(Marked) ordinary (activity causes symtoms) Date of Service: Jun 12, 2024 Billing Provider: LISA NOBLES MD Cardiology Common Codes: [id number] INP/OBS CARE (High) Cardiology Consultation Codes: [id number] CONSULT <45MIN DEEPAK BARFIELD [facility] Jun 12, 2024 15:25
--- NOTE | 2024-06-12 15:51 | DVHINCON2 ---
Date of service: Jun 12, [address] Fair Reason for Consultation hypothyroidism History of Present Illness 74yo F w/ hx of hypothyroidism, COPD, Afib, CAD s/p PCI, HF, HTN who was admitted on 06/10 for dyspnea. Patient upon admission was found to have radiographic and clinical manifestations concerning for pneumonia triggering a COPD exacerbation. Regarding her thyroid, patient states she has been maintained on levothyroxine due to an underlying diagnosis of hypothyroidism for decades. Does not follow with an undercover cop. Patient had TFTs measured on admission showing TSH 38 (06/10) and FT4 1.0, FT3 1.0 (06/12). She does not display any overt hypothermia, constipation, lethargy, cold intolerance, dry skin. Patient manages her medications at home by herself. Her family does help her set up a pill box. Patient states she takes her levothyroxine with all of her other medications sometimes with food as well. Past Medical History Problems Medical Problems: (1) COPD exacerbation Status: Acute (2) Pneumonitis Status: Acute Past Surgical History Past Surgical History Medical Problems: (1) COPD exacerbation Status: Acute (2) Pneumonitis Status: Acute Family History: Hypertension G8 MOTHER Allergies: Coded Allergies: Codeine (Verified Allergy, Unknown, 07/22/23) Levofloxacin (Verified Allergy, Unknown, 09/07/23) Home Meds Reported Medications Sacubitril-Valsartan (Entresto 24-26 mg) 1 Tab Tab, 1 TAB PO, TAB 09/09/23 Levothyroxine Sodium (Levothyroxine Sodium) 175 Mcg Tab, 150 MCG PO QAM for 30 Days, MCG 09/09/23 Atorvastatin Calcium (ATORVASTATIN CALCIUM) 10 Mg Tab, 10 MG PO DAILY, TAB 09/09/23 Amlodipine Besylate (Amlodipine Besylate) 5 Mg Tab, 5 MG PO DAILY for 30 Days, MG 09/09/23 Omeprazole (Gnp Omeprazole) 20 Mg Tab, 40 MG PO DAILY, TAB 09/09/23 Apixaban Base (ELIQUIS) 5 Mg Tab, 5 MG PO BID, TAB 09/09/23 Docusate Sodium (Colace) 100 Mg Cap, 100 MG PO BID 09/09/23 Current Medications Current Medications Medications (Trade) Dose Ordered Sig/David Route PRN Reason Start Time Stop Time Status Last Admin Ceftriaxone Sodium 50 ml @ 100 mls/hr DAILY@09 IV 06/12/24 09:00 06/12/24 12:39 Levothyroxine Sodium (Synthroid Tablet) 150 mcg QAM@0600 PO 06/12/24 06:00 Prednisone 40 mg DAILY PO 06/12/24 10:00 06/12/24 12:40 Azithromycin (Zithromax Tablet) 250 mg DAILY PO 06/12/24 14:47 Magnesium Sulfate/ Dextrose 100 ml @ 100 mls/hr Q1HR IV 06/12/24 15:00 06/12/24 16:59 Vital Signs Vital Signs Date Time Temp Pulse Resp B/P (MAP) Pulse Ox O2 Delivery O2 Flow Rate FiO2 06/12/24 13:23 105 18 100 06/12/24 13:18 Room Air 0.0 06/12/24 13:18 21 06/12/24 12:45 97.9 116/91 (99) 97.9 Physical Exam Gen - lying in bed in no acute distress HEENT - no thyromegaly, no lymphadenopathy CV - RRR, no m/r/g Ext - no edema Psych - AO x4 Labs/Diagnostic Data Labs Test 06/12/24 14:43 06/12/24 05:23 06/11/24 12:46 06/11/24 09:35 Range/Units Blood Gas Specimen Type Arterial Blood Gas Sample Site Right radial Blood Gas Patient Temperature 37.0 Arterial Blood Date Drawn [id number] Arterial Blood pH 7.454 H 7.350-7.450 Arterial Blood Partial Pressure CO2 32.1 32.0-45.0 mmHg Arterial Blood Partial Pressure O2 75.9 L 83.0-108.0 mmHg Arterial Blood HCO3 22.0 21.0-28.0 mmol/L Arterial Blood Oxygen Saturation 94.7 94.0-98.0 % Arterial Blood Base Excess -1.0 -2.0-3.0 mmol/L Arterial Blood Oxyhemoglobin 93.7 L 94.0-98.0 % Arterial Blood Carboxyhemoglobin 0.8 0.5-1.5 % Arterial Blood Methemoglobin 0.3 0.0-1.5 % Fermin Test Yes Blood Gas Total Hemoglobin 14.50 12.0-16.0 g/dL Blood Gas Modality Room air FiO2 % 21.0 White Blood Count 11.4 #H 4.4-10.8 10^3/uL Red Blood Count 4.50 4.0-5.20 10^6/uL Hemoglobin 13.6 12.2-16.2 g/dL Hematocrit 40.5 # 36.0-46.0 % Mean Corpuscular Volume 90.1 80.0-100.0 fL Mean Corpuscular Hemoglobin 30.2 28.0-32.0 pg Mean Corpuscular Hemoglobin Concent 33.5 32.0-36.0 g/dL Red Cell Distribution Width 14.1 11.8-14.3 % Platelet Count 245 140-450 10^3/uL Mean Platelet Volume 9.0 6.9-10.8 fL Neutrophils (%) (Auto) 90.8 H 37.0-80.0 % Lymphocytes (%) (Auto) 6.9 L 10.0-50.0 % Monocytes (%) (Auto) 2.3 0.0-12.0 % Eosinophils (%) (Auto) 0.0 0.0-7.0 % Basophils (%) (Auto) 0.0 0.0-2.0 % Neutrophils # (Auto) 10.3 H 1.6-8.6 10 ^3/uL Lymphocytes # (Auto) 0.8 0.4-5.4 10 ^3/uL Monocytes # (Auto) 0.3 0-1.3 10 ^3/uL Eosinophils # (Auto) 0 0-0.8 10 ^3/uL Basophils # (Auto) 0 0-0.2 10 ^3/uL Nucleated Red Blood Cells 0.0 % Sodium Level 139 136-145 mmol/L Potassium Level 4.4 3.5-5.1 mmol/L Chloride Level 107 98-107 mmol/L Carbon Dioxide Level 22 20-31 mmol/L Anion Gap 10 5-15 Blood Urea Nitrogen 13 9-23 mg/dL Creatinine 0.74 0.550-1.02 mg/dL Glomerular Filtration Rate Calc 85 >90 mL/min BUN/Creatinine Ratio 17.6 10.0-20.0 Serum Glucose 133 H 74-106 mg/dL Hemoglobin A1c 6.2 H <5.7 % A1C Calcium Level 9.5 8.7-10.4 mg/dL Magnesium Level 1.7 1.6-2.6 mg/dL Free Thyroxine (T4) Calculated 1.01 0.89-1.76 ng/dL Free Triiodothyronine (T3) pg/mL 1.01 L 2.3-4.2 pg/mL Urine Color Yellow Yellow Urine Clarity Clear Clear Urine pH 6.0 5.0-9.0 Urine Specific [place] 1.023 1.001-1.035 Urine Protein 1+ H Negative Urine Ketones Negative Negative Urine Blood Negative Negative /uL Urine Nitrite Negative Negative Urine Bilirubin Negative Negative Urine Urobilinogen Normal Negative mg/dL Urine Leukocyte Esterase Negative Negative /uL Urine RBC 1 0 - 4 /hpf Urine WBC 2 0 - 5 /hpf Urine Squamous Epithelial Cells Few <5 /hpf Urine Bacteria None seen None Seen /hpf Urine Mucus Few None Seen Urine Glucose Normal Normal mg/dL Total Bilirubin 0.9 0.2-1.0 mg/dL Aspartate Amino Transferase (AST) 18 13-40 U/L Alanine Aminotransferase (ALT) 10 7-40 U/L Alkaline Phosphatase 63 46-116 U/L Troponin I High Sensitivity 39 *H </=34 ng/L Total Protein 6.9 5.7-8.2 g/dL Albumin 4.0 3.2-4.8 g/dL Test 06/10/24 15:24 Range/Units Thyroid Stimulating Hormone (TSH) 38.29 H 0.55-4.78 uIU/mL Assessment # COPD exacerbation # Pneumonia # Subclinical hypothyroidism Elevated TSH with normal FT4 during hospitalization. Patient not taking levothyroxine appropriately at home promoting significantly elevated TSH. Normal FT4 while inpatient does suggest appropriate absorption. No clinical evidence of myxedema. - Continue levothyroxine 150mcg daily - Repeat TSH, FT4 on 06/14 - Pill hygiene reviewed - patient to take levothyroxine fasting in AM at least 30-60min prior to taking any other medications or food - Repeat TSH in 4-6 weeks following discharge - Recommend f/u with undercover cop Plan discussed with: Patient JOSELO PEREZ MD Jun 12, 2024 15:51
--- NOTE | 2024-06-12 16:15 | DVHPN2 ---
Subjective Seen and examined at bedside. Patient is off Oxygen. Control HR due to A-Fibb. Cardio consult done. Changes from previous H/P or p: No Changes Eyes: No Pain, No Vision change, No Conjunctivae inflammation, No Eyelid inflammation, No Other, No Redness ENT: No Ear pain, No Ear discharge, No Nose pain, No Nose discharge, No Nose congestion, No Mouth pain, No Mouth swelling, No Throat pain, No Throat swelling, No Other Cardiovascular: No Chest Pain, No Palpitations, No Orthopnea, No Paroxysmal Noc. Dyspnea, No Edema, No Lt Headedness, No Other Respiratory: No Cough, No Dry, No Shortness of breath, No SOB with excertion, No Wheezing, No Hemoptysis, No Pleuritic Pain, No Sputum; Other (SOB at rest) Gastrointestinal: No Nausea, No Vomiting, No Abdominal Pain, No Diarrhea, No Constipation, No Melena, No Hematochezia, No Other Genitourinary: No Dysuria, No Frequency, No Incontinence, No Hematuria, No Retention, No Other Musculoskeletal: No other, No neck pain, No shoulder pain, No arm pain, No back pain, No hand pain, No leg pain, No foot pain Skin: No Rash, No Lesions, No Jaundice, No Bruising, No Other Objective Vitals Vital Signs Date Time Temp Pulse Resp B/P (MAP) Pulse Ox O2 Delivery O2 Flow Rate FiO2 06/12/24 13:23 105 18 100 06/12/24 13:18 Room Air 0.0 06/12/24 13:18 21 06/12/24 12:45 97.9 116/91 (99) 97.9 Intake/Output Intake and Output 06/12/24 07:00 Intake Total 1890 ml Output Total 0 ml Balance 1890 ml Intake Oral 580 ml IV Total 1310 ml Output Stool Total 0 ml # Voids 4 General Appearance: Alert, Oriented X3, Cooperative, No acute distress Lungs: Clear to auscultation Cardiovascular: Other (Irregular, Tachycardic) Abdomen: Normal bowel sounds, Soft Psych/Mental Status: Mental status NL Medications Current Medications Medications Dose Ordered Sig/David Route Start Time Stop Time Status Last Admin Dose Admin Famotidine 20 mg Q12HR IV 06/10/24 22:00 06/12/24 12:40 20 MG Levalbuterol HCl 0.625 mg Q6HR NEB 06/11/24 00:00 06/12/24 13:18 0.625 MG Ipratropium [place] 0.5 mg Q4HPRN PRN NEB 06/10/24 20:30 06/12/24 13:18 0.5 MG Amlodipine Besylate 5 mg DAILY PO 06/11/24 10:00 06/11/24 10:28 5 MG Atorvastatin Calcium 10 mg HS PO 06/10/24 22:00 06/11/24 21:59 10 MG Apixaban 5 mg BID PO 06/10/24 22:00 06/12/24 12:40 5 MG Docusate Sodium 100 mg BIDPRN PRN PO 06/10/24 20:30 Acetaminophen 650 mg Q6HP PRN PO 06/10/24 20:30 06/12/24 12:46 650 MG Levothyroxine Sodium 150 mcg QAM@0600 PO 06/11/24 06:00 06/12/24 06:29 150 MCG Ceftriaxone Sodium 50 ml @ 100 mls/hr DAILY@09 IV 06/12/24 09:00 06/12/24 12:39 100 MLS/HR Levothyroxine Sodium 150 mcg QAM@0600 PO 06/12/24 06:00 Prednisone 40 mg DAILY PO 06/12/24 10:00 06/12/24 12:40 40 MG Azithromycin 250 mg DAILY PO 06/12/24 14:47 Magnesium Sulfate/ Dextrose 100 ml @ 100 mls/hr Q1HR IV 06/12/24 15:00 06/12/24 16:59 Laboratory Results Laboratory Tests 06/12/24 05:23 Chemistry Test 06/12/24 05:23 Calcium Level 9.5 mg/dL (8.7-10.4) Magnesium Level 1.7 mg/dL (1.6-2.6) HgA1c, TSH Test 06/12/24 05:23 Hemoglobin A1c 6.2 % A1C (<5.7) H Urinalysis Test 06/11/24 12:46 Urine Color Yellow (Yellow) Urine Clarity Clear (Clear) Urine pH 6.0 (5.0-9.0) Urine Specific [place] 1.023 (1.001-1.035) Urine Protein 1+ (Negative) H Urine Ketones Negative (Negative) Urine Blood Negative /uL (Negative) Urine Nitrite Negative (Negative) Urine Bilirubin Negative (Negative) Urine Urobilinogen Normal mg/dL (Negative) Urine Leukocyte Esterase Negative /uL (Negative) Urine RBC 1 /hpf (0 - 4) Urine WBC 2 /hpf (0 - 5) Urine Squamous Epithelial Cells Few /hpf (<5) Urine Bacteria None seen /hpf (None Seen) Urine Mucus Few (None Seen) Urine Glucose Normal mg/dL (Normal) Blood Gas Results Test 06/12/24 14:43 Arterial Blood pH 7.454 (7.350-7.450) FiO2 % 21.0 Assessment/Plan Assessment/Plan # acute hypoxic respiratory failure likely due to COPD exacerbation/obstructive pneumonia/lung loss - Improving # COPD with acute exacerbation -switch to oral prednisone # ?obstructive Pneumonia, unspecified organism -IV ceftriaxone plus IV azithromycin # Mildly ectatic ascending thoracic aorta -seen on CT chest. Outpatient followup # Nodular density in the left lower lobe, concern for malignancy -CT chest shows Nodular density in the left lower lobe abutting the posterior aspect of the descending thoracic aorta, most likely a pulmonary nodule, although can not completely exclude a small saccular aneurysm emanating from the posterior aspect of the aortic arch. Contrast enhanced CT could be obtained to further characterize. -history of previous smoking -pulmonology consulted, outpatient workup # Right adrenal nodule, most likely adenoma. CT shows Right adrenal nodule, most likely adenoma. Small focus of calcification associated with the nodule, may be sequela of small adrenal hemorrhage. #History of A-fib -eliquis continued #CAD s/p PTCA -currently on eliquis will consider aspirin on discharge, continue statins #CHF, chronic -monitor -Moderate to marked cardiomegaly with left atrial enlargement seen on CT -we will resume Entresto # hypertension -we will resume home medication #Hyperlipidemia -statins #Hypothyroidism -resume home meds #DVT prophylaxis Patient is on Eliquis Plan discussed with: Patient My Orders Orders - ZORAIDA JACKSON MD Procedure Category Date Status Time Abg W/ Co-Ox RT 06/12/24 Logged 14:10 Electrocardigram EKG 06/12/24 Logged 14:37 * Endocrinology CONS 06/12/24 Transmitted Consult 14:38 Basic Metabolic Panel LAB 06/13/24 Verified 04:00 B-Type Natriuretic LAB 06/13/24 Verified Peptide 04:00 Magnesium LAB 06/13/24 Verified 04:00 Complete Blood Count LAB 06/13/24 Verified 04:00 Azithromycin Tablet PHA 06/12/24 In Process (Zithromax Tablet) 14:47 Date of Service: Jun 12, 2024 Billing Provider: ZORAIDA JACKSON MD Common Visit Codes: [id number] INP/OBS CARE(HIGH) ZORAIDA JACKSON MD Jun 12, 2024 16:15
--- NOTE | 2024-06-12 18:50 | DVHSR ---
APPROVED REPORT EXAM: Two-dimensional and M-mode echocardiogram with Doppler and color Doppler. Blood Pressure: 116/91 mmHg INDICATION Evaluate cardiac function RISK FACTORS Height: 5'2", Weight: 119 DIMENSIONS LVDd4.9 (3.8-5.7cm)LA (2D)6.6 (1.9-4.0cm)Aortic Root3.9 (2.0-3.7cm) LVDs3.7 (2.5-4.0cm)LA (MM) (1.9-4.0cm)Aortic Cusp Exc1.4 (1.5-2.0cm) EF (%) 60.0 (55-70%)Rt. Atrium4.7 (1.9-4.0cm)Asc. Aorta cm IVSd1.5 (0.7-1.1cm)RV (D) (1.8-2.4cm) PWd1.5 (0.7-1.1cm) Mitral Valve MitralMitral Stenosis E wave1.45m/sMV Mean GR.mmHg E/A ratio0.02D MVAcm2 Aortic Valve Aortic ValveAortic Stenosis V10.85m/Annetta Mean GR.7mmHg V21.79m/Annetta Peak GR.13mmHg LVOT Diameter2.0 (1.8-2.4cm)Doppler AVA1.49cm2 2D AVA1.57cm2 AI P 1/2 Dxfm434.04ms Pulmonic Valve V20.68m/s Tricuspid Valve TR Velocity2.62m/s [id number] LEFT VENTRICLE The left ventricle is normal size. There is moderate concentric left ventricular hypertrophy. Left ventricle systolic function is normal. The Ejection Fraction is 60%. Diastolic function is indeterminate as patient is in atrial fibrillation. No regional wall motion abnromalities. RIGHT VENTRICLE Normal size and sytolic function. ATRIA Massively dilated in size. Normal size. MITRAL VALVE There is mild mitral annular calcification. Leaflets are mildly thickened. The motion of the posterio r mitral valve leaflet is restricted. There is moderate to severe very eccentric regurgitation jet th at is anteriorly and medially directed. PULMONIC VALVE Likely normal. TRICUSPID VALVE There is mild to moderate central tricuspid regurgitation. PA systoilc pressure is estimated at 30 mm hg. AORTIC VALVE The leaflets are mildly calcified. No significant stenosis. There is mild to moderate regurgitation. GREAT VESSELS Not well visualized. PERICARDIAL EFFUSION No pericardial effusion. IVC is of normal size and collapses normally with inspiration. Other Information Technically limited study due to body habitus. Conclusion Normal left ventricular size and systolic function. Moderate concentric left ventricular hypertrophy. Normal right ventricular size and systolic function. Massively dilated left atrial chamber size. There is moderate to severe very eccentric regurgitation jet that is anteriorly and medially directed . Severity of mitral regurgitation could be underestimated because of eccentricity of the jet. Mild to moderate aortic regurgitation and tricuspid regurgitation. PA systolic pressure is estimated at 30 mmhg.
[2024-06-12] MEDS: DIGOXIN (250MCG/ML) 2 ML AMPULE IV ONE (19:47)
[2024-06-12] MEDS: MAGNESIUM SULFATE 1GM/100ML 100 ML IV SCH ×2 (19:47→20:00)
[2024-06-12] MEDS: AZITHROMYCIN 250 MG TAB PO SCH (19:48)
[2024-06-12] MEDS: METOPROLOL SUCCINATE XL 50 MG TAB PO ONE (19:49)
[2024-06-12] MEDS: ATORVASTATIN 20 MG TAB PO SCH (21:44)
[2024-06-12] MEDS: CARVEDILOL 3.125 MG TAB PO SCH (21:45)
[2024-06-13] VITALS (12 sets, daily range): BP systolic 104–127; BP diastolic 57–84; PULSE 68–99; RESP 15–20; TEMP 97.5–97.7; O2SAT 93–100
[2024-06-13 06:48] LABS: Basophils # (auto) 0 10 ^3/uL (0-0.2); Basophils % (auto) 0.1 % (0.0-2.0); Eosinophils # (auto) 0 10 ^3/uL (0-0.8); Hematocrit 42.1 % (36.0-46.0); Hemoglobin 13.9 g/dL (12.2-16.2); Lymphocytes # (auto) 0.8 10 ^3/uL (0.4-5.4); Lymphocytes % (auto) 8.2 % (10.0-50.0); Mean Corpuscular Hemoglobin 30.1 pg (28.0-32.0); Mean Corpuscular Hgb Conc. 33.1 g/dL (32.0-36.0); Mean Corpuscular Volume 90.8 fL (80.0-100.0); Monocytes # (auto) 0.4 10 ^3/uL (0-1.3); Neutrophils # (auto) 8.3 10 ^3/uL (1.6-8.6); Neutrophils % (auto) 87.7 % (37.0-80.0); Nucleated Red Blood Cells % 0.1 %; Platelet Count (auto) 265 10^3/uL (140-450); Red Blood Cells 4.63 10^6/uL (4.0-5.20); White Blood Cell 9.4 10^3/uL (4.4-10.8)
[2024-06-13 06:57] LABS: Chloride 106 mmol/L (98-107); Potassium 4.1 mmol/L (3.5-5.1); Sodium 140 mmol/L (136-145)
[2024-06-13 06:58] LABS: Anion Gap 8 (5-15); Calcium 9.7 mg/dL (8.7-10.4); Carbon Dioxide 26 mmol/L (20-31)
[2024-06-13 07:03] LABS: BUN/Creatinine Ratio 18.7 (10.0-20.0); Blood Urea Nitrogen 14 mg/dL (9-23); Magnesium 2.4 mg/dL (1.6-2.6)
[2024-06-13 07:15] LABS: Glucose 109 mg/dL (74-106)
[2024-06-13] MEDS: ASPirin 81 mg TAB PO SCH (09:06)
[2024-06-13] MEDS ORDERED: OMEP20TA PO (09:54)
[2024-06-13] MEDS ORDERED: CARV12.544 PO (09:54)
[2024-06-13] MEDS ORDERED: GABA300T4 PO (09:55)
[2024-06-13] MEDS ORDERED: METOPROLOL SUCCINATE XL 50 MG TAB PO SCH (10:00)
[2024-06-13] MEDS ORDERED: ALBUAER3 IN (11:03)
[2024-06-13] MEDS ORDERED: AZIT-43 PO (11:03)
[2024-06-13] MEDS ORDERED: FURO1TAB33 PO (11:03)
[2024-06-13] MEDS ORDERED: PRED20TA2 PO (11:07)
--- NOTE | 2024-06-13 11:09 | DVHDS2 ---
Discharge Summary Date of Admission Jun 10, 2024 at 21:15 Date of Discharge: Jun 13, 2024 Admitting Diagnosis COPD with acute exacerbation Labs/Diagnostic Data: Laboratory Results Test 06/13/24 05:27 06/12/24 14:43 06/12/24 05:23 06/11/24 12:46 White Blood Count 9.4 10^3/uL (4.4-10.8) Red Blood Count 4.63 10^6/uL (4.0-5.20) Hemoglobin 13.9 g/dL (12.2-16.2) Hematocrit 42.1 % (36.0-46.0) Mean Corpuscular Volume 90.8 fL (80.0-100.0) Mean Corpuscular Hemoglobin 30.1 pg (28.0-32.0) Mean Corpuscular Hemoglobin Concent 33.1 g/dL (32.0-36.0) Red Cell Distribution Width 14.0 % (11.8-14.3) Platelet Count 265 10^3/uL (140-450) Mean Platelet Volume 8.5 fL (6.9-10.8) Neutrophils (%) (Auto) 87.7 % (37.0-80.0) Lymphocytes (%) (Auto) 8.2 % (10.0-50.0) Monocytes (%) (Auto) 4.0 % (0.0-12.0) Eosinophils (%) (Auto) 0.0 % (0.0-7.0) Basophils (%) (Auto) 0.1 % (0.0-2.0) Neutrophils # (Auto) 8.3 10 ^3/uL (1.6-8.6) Lymphocytes # (Auto) 0.8 10 ^3/uL (0.4-5.4) Monocytes # (Auto) 0.4 10 ^3/uL (0-1.3) Eosinophils # (Auto) 0 10 ^3/uL (0-0.8) Basophils # (Auto) 0 10 ^3/uL (0-0.2) Nucleated Red Blood Cells 0.1 % Sodium Level 140 mmol/L (136-145) Potassium Level 4.1 mmol/L (3.5-5.1) Chloride Level 106 mmol/L (98-107) Carbon Dioxide Level 26 mmol/L (20-31) Anion Gap 8 (5-15) Blood Urea Nitrogen 14 mg/dL (9-23) Creatinine 0.75 mg/dL (0.550-1.02) Glomerular Filtration Rate Calc 83 mL/min (>90) BUN/Creatinine Ratio 18.7 (10.0-20.0) Serum Glucose 109 mg/dL (74-106) Calcium Level 9.7 mg/dL (8.7-10.4) Magnesium Level 2.4 mg/dL (1.6-2.6) B-Type Natriuretic Peptide 307.19 pg/mL (0-100) Blood Gas Specimen Type Arterial Blood Gas Sample Site Right radial Blood Gas Patient Temperature 37.0 Arterial Blood Date Drawn [id number] Arterial Blood pH 7.454 (7.350-7.450) Arterial Blood Partial Pressure CO2 32.1 mmHg (32.0-45.0) Arterial Blood Partial Pressure O2 75.9 mmHg (83.0-108.0) Arterial Blood HCO3 22.0 mmol/L (21.0-28.0) Arterial Blood Oxygen Saturation 94.7 % (94.0-98.0) Arterial Blood Base Excess -1.0 mmol/L (-2.0-3.0) Arterial Blood Oxyhemoglobin 93.7 % (94.0-98.0) Arterial Blood Carboxyhemoglobin 0.8 % (0.5-1.5) Arterial Blood Methemoglobin 0.3 % (0.0-1.5) Fermin Test Yes Blood Gas Total Hemoglobin 14.50 g/dL (12.0-16.0) Blood Gas Modality Room air FiO2 % 21.0 Hemoglobin A1c 6.2 % A1C (<5.7) Free Thyroxine (T4) Calculated 1.01 ng/dL (0.89-1.76) Free Triiodothyronine (T3) pg/mL 1.01 pg/mL (2.3-4.2) Urine Color Yellow (Yellow) Urine Clarity Clear (Clear) Urine pH 6.0 (5.0-9.0) Urine Specific [place] 1.023 (1.001-1.035) Urine Protein 1+ (Negative) Urine Ketones Negative (Negative) Urine Blood Negative /uL (Negative) Urine Nitrite Negative (Negative) Urine Bilirubin Negative (Negative) Urine Urobilinogen Normal mg/dL (Negative) Urine Leukocyte Esterase Negative /uL (Negative) Urine RBC 1 /hpf (0 - 4) Urine WBC 2 /hpf (0 - 5) Urine Squamous Epithelial Cells Few /hpf (<5) Urine Bacteria None seen /hpf (None Seen) Urine Mucus Few (None Seen) Urine Glucose Normal mg/dL (Normal) Test 06/11/24 09:35 06/10/24 15:24 Total Bilirubin 0.9 mg/dL (0.2-1.0) Aspartate Amino Transferase (AST) 18 U/L (13-40) Alanine Aminotransferase (ALT) 10 U/L (7-40) Alkaline Phosphatase 63 U/L (46-116) Troponin I High Sensitivity 39 ng/L (</=34) Total Protein 6.9 g/dL (5.7-8.2) Albumin 4.0 g/dL (3.2-4.8) Thyroid Stimulating Hormone (TSH) 38.29 uIU/mL (0.55-4.78) Other Laboratory Tests 06/13/24 05:27 Brief Hx & Hospital Course: A 74-year-old woman with past medical history of COPD, CHF, hypertension, hyperlipidemia, coronary artery disease, and thyroid disease who presented to ED on 06/10/24 with complaint of shortness of breath. Patient reported progressively worsening symptoms with hypoxia, O2 saturation in the 80s when EMS arrived. ED workup notable for WBC 5.3, platelets 214, sodium 139, potassium 4.6, BUN 14, creatinine 0.78, GFR 50, glucose 107, troponin 51. Chest x-ray revealing right lower lung zone partial opacification which may represent pneumonia, 2.8 x 2.9 cm nodules density over the right mid lung zone; hyperinflation of the lungs, correlate for possible mild emphysematous changes. Patient was admitted for further care and pulmonary consultation is requested for evaluation and management due to these findings. Patient was treated with antibiotics and prednisone. Patient is feeling better does not qualify for home oxygen. Patient will be discharged home to see Pulm clinic. Operations or Procedures CLINICAL INFORMATION: 74 years old, Female; shortness of breath. TECHNIQUE: Axial CT imaging of the chest was performed without IV contrast. Sagittal and coronal reformatted images were made, stored and reviewed. Evaluation is limited without IV contrast. One or more of the following dose reduction techniques were used: Automated exposure control. Adjustment of mA and/or kV according to patient size. CTDIvol = 9.84 mGy DLP = 362.82 mGy-cm COMPARISON: Radiograph dated 06/10/2024 FINDINGS: Aorta: Mildly ectatic ascending aorta measuring up to 3.9 cm in diameter. Moderate atherosclerotic calcification. Cardiac: Moderate to marked cardiomegaly with markedly enlarged left atrium. Dense coronary artery calcification and/or stents. Mediastinum/mally: Right lower paratracheal lymph node measures up to 2.6 x 0.9 cm, likely reactive. Lungs: Scattered areas of subsegmental atelectasis. No focal consolidation. There is an ovoid nodular density in the right lower lobe abutting the posterior aspect of the descending thoracic aorta, measuring up to 1.1 cm. This is most likely a pulmonary nodule abutting the descending thoracic aorta, or less likely a saccular aneurysm emanating from the posterior wall of the descending thoracic aorta, although unable to determine without IV contrast. No other pulmonary nodule visualized. Pulmonary arteries: No gross abnormality. Chest wall: No mass or other abnormality. Upper abdomen: Right adrenal nodule measures up to 1.1 cm demonstrates low- density, likely an adenoma. There is a small area of calcification associated with the nodule. Bones: No fracture or suspicious intraosseous lesions. IMPRESSION: 1. Moderate to marked cardiomegaly with left atrial enlargement. 2. Mildly ectatic ascending thoracic aorta. 3. Nodular density in the left lower lobe abutting the posterior aspect of the descending thoracic aorta, most likely a pulmonary nodule, although can not completely exclude a small saccular aneurysm emanating from the posterior aspect of the aortic arch. Contrast enhanced CT could be obtained to further characterize. 4. Right adrenal nodule, most likely adenoma. Small focus of calcification associated with the nodule, may be sequela of small adrenal hemorrhage. 5. Additional findings as detailed above. Condition at Discharge: Poor Final Diagnosis/Problems List # acute hypoxic respiratory failure likely due to COPD exacerbation/obstructive pneumonia/lung loss # COPD with acute exacerbation # Severe Mitral Regurg- Outpatient workup # Uncontrolled Hypothyroid # ?obstructive Pneumonia, unspecified organism # Mildly ectatic ascending thoracic aorta # Nodular density in the left lower lobe, concern for malignancy -CT chest shows Nodular density in the left lower lobe abutting the posterior aspect of the descending thoracic aorta, most likely a pulmonary nodule, although can not completely exclude a small saccular aneurysm emanating from the posterior aspect of the aortic arch. Contrast enhanced CT could be obtained to further characterize. -history of previous smoking -pulmonology consulted, outpatient workup Discharge Disposition: Home Discharge Instruct/Medications Diet: Regular Activity: Light activity Follow Up/Referral: [facility] Medications: see [facility] Discharge Statement: "Patient was advised to return to the ER or call 911 if any headaches, dizziness, shortness of breath, chest pain, abdominal pain, bleeding, fevers, or worsening of medical condition. Patient was counseled about treatment plan, medications, possible side effects, patientverbalized understanding. All questions were answered to the best of my ability. This discharge took greater then 30 minutes in planning, reviewing documentation, counseling the patient, and discussing with other team members." ASSESSMENT ASSESSMENT Assessment Date of Service: Jun 13, 2024 Billing Provider: ZORAIDA JACKSON MD Common Visit Codes: 99217-LKO/OBS DISCH DAY >30min ZORAIDA JACKSON MD Jun 13, 2024 11:09
[2024-06-13] MEDS: traMADol HCL 50 MG TAB PO PRN (12:04)
[2024-06-14] MEDS ORDERED: INFLUENZA TRIVALENT 2024-2025 0.5 ML INJ IM ONE (10:30)
[2024-06-14] MEDS ORDERED: PNEUMOCOCCAL VACC POLYS 25 MCG/0.5 ML VIAL IM ONE (10:30)
== END 2024-06-13 16:01 | disposition home or self-care (01) | DRG 189 ==
LOC: ER 14:36 → EDBD 14:36 → TELE 21:15 → TELE-CENTR 23:41
PROVIDERS: ADMIT Nurse Practitioner Family; ATTEND Internal Medicine
DX: J96.01 Acute respiratory failure with hypoxia (principal); J18.9 Pneumonia, unspecified organism; I21.A1 Myocardial infarction type 2; J44.0 Chronic obstructive pulmonary disease with (acute) lower respiratory infection; I48.19 Other persistent atrial fibrillation; J44.1 Chronic obstructive pulmonary disease with (acute) exacerbation; I11.0 Hypertensive heart disease with heart failure; E78.5 Hyperlipidemia, unspecified; I25.10 Atherosclerotic heart disease of native coronary artery without angina pectoris; E03.8 Other specified hypothyroidism; J98.4 Other disorders of lung; K21.9 Gastro-esophageal reflux disease without esophagitis; I34.0 Nonrheumatic mitral (valve) insufficiency; I77.810 Thoracic aortic ectasia; Z79.01 Long term (current) use of anticoagulants; Z88.5 Allergy status to narcotic agent; Z88.1 Allergy status to other antibiotic agents; Z82.49 Family history of ischemic heart disease and other diseases of the circulatory system; Z98.61 Coronary angioplasty status; Z86.718 Personal history of other venous thrombosis and embolism; Z87.891 Personal history of nicotine dependence; I50.9 Heart failure, unspecified
CPT/HCPCS: 36415; 36600; 71045; 71250; 80048; 80053; 81001; 82805; 83036; 83735; 83880; 84439; 84443; 84481; 84484; 85025; 93005; 93306; 94640; 96374; 99291; G0378; J3490